=== PATIENT | male | born 1995 | race Caucasian/White ===

== ENCOUNTER → 2023-11-22 08:23 | Outpatient (REF) | payer BC, SELFPAY | LOC: HWRAD 08:23 | PROVIDERS: ATTENDING PHYSICIAN Internal Medicine | DX: R79.89 Other specified abnormal findings of blood chemistry (principal) | CPT/HCPCS: 76700 ==

== ENCOUNTER 2024-11-13 15:04 | Emergency (ER) | payer BC, SELFPAY ==
[2024-11-13 15:05] VITALS: BP 190/98
[2024-11-13 15:21] LABS: % Basophils 0.3 % (0-2); % Eosinophils 1.1 % (0-6); % Immature Granulocytes 0.7 % (0-0.5); % Lymphocytes 17.6 % (20.5-51.1); % Monocytes 9.4 % (1.7-9.3); % Neutrophils 70.9 % (42.2-75.2); Absolute Eosinophils 0.1 10^3/uL (0-0.7); Absolute Immature Granulocytes 0.1 10^3/uL (0-0.05); Absolute Lymphocytes 1.6 10^3/uL (1.2-3.4); Absolute Monocytes 0.9 10^3/uL (0.1-0.6); Absolute Neutrophils 6.5 10^3/uL (1.4-6.5); Hematocrit 48.1 % (39.0-52.0); Hemoglobin 16.5 g/dL (13.0-18.0); Mean Corp Hgb Conc. 34.3 g/dL (33.0-37.0); Mean Corpuscular Hgb 28.8 pg (27.0-31.0); Mean Corpuscular Volume 83.9 fL (80.0-94.0); Nucleated Red Blood Cells % 0 % (-); Platelet Count 246 10^3/uL (130-400); Red Blood Cell Count 5.73 10^6/uL (4.70-6.10); Red Cell Dist. Width 12.7 % (11.5-14.5); White Blood Cell Count 9.1 10^3/uL (4.8-10.8)
[2024-11-13 15:31] LABS: ALT (SGPT) 78 U/L (0-50); AST (SGOT) 45 U/L (17-59); Albumin 4.5 g/dl (3.5-5.0); Alkaline Phosphatase 45 U/L (38-126); Blood Urea Nitrogen 10 mg/dl (9-20); Calcium 9.9 mg/dl (8.4-10.2); Carbon Dioxide 29 mmol/L (22-30); Chloride 105 mmol/L (98-107); Glucose 137 mg/dl (70-99); Lipase 489 U/L (23-300); Sodium 142 mmol/L (135-145); Total Bilirubin 0.9 mg/dl (0.2-1.3); Total Protein 7.4 g/dl (6.3-8.2); eGFR > 60.00
[2024-11-13 15:58] VITALS: BMI 27.5
--- NOTE | 2024-11-13 17:10 | ED.GENMED ---
History of Present Illness
General
Chief Complaint: Abdominal Pain
Time Seen by Provider: 11/13/24 15:16
History of Present Illness
History of Present Illness:
29-year-old male presents the emergency department for evaluation of lower abdominal pain and vomiting for the past 2 days. No diarrhea. Pain has been gradually worsening since onset. No prior abdominal surgical history. No chills or night
sweats.
Review of Systems
Review of Systems
Allergies reviewed?: Yes
All Other Systems: ROS reviewed and negative except as documented in HPI and ROS
Phy Exam
Physical Exam
Physical Exam:
GEN: Well appearing, NAD, WDWN
HEENT: Oral mucosa moist, no scleral icterus
Cardiac: Regular rate
Lung: No respiratory distress, no tachypnea
Abdomen: Soft, diffuse lower abdominal tenderness
MSK: No gross deformity or injuries
Skin: Good color, no pallor or jaundice, no rashes
Neuro: AO x3, moves all extremities freely
Psych: Calm, cooperative
Course
Orders/Labs/Results
Orders:
Orders
11/13/24 15:11
Complete Blood Count/With Diff Urgent
Comprehensive Metabolic Panel Urgent
Lipase Urgent
11/13/24 15:49
CT Abd/Pel (IV only)-DH only Urgent
Comment:
Reason For Exam: lower abd pain
11/13/24 17:46
Dicyclomine [Bentyl] 20 mg .ROUTE .STK-MED ONE
11/13/24 17:47
Dicyclomine [Bentyl] 20 mg PO NOW STA
Abnormal Lab Results
11/13/24
15:11
Abs Immat Gran (auto) 0.1 H 10^3/uL
(0-0.05)
Absolute Monos (auto) 0.9 H 10^3/uL
(0.1-0.6)
Immature Gran % 0.7 H %
(0-0.5)
Lymphocytes % 17.6 L %
(20.5-51.1)
Monocytes % 9.4 H %
(1.7-9.3)
Glucose 137 H mg/dl
(70-99)
ALT 78 H U/L
(0-50)
Lipase 489 H U/L
(23-300)
11/13/24 15:11
11/13/24 15:11
Vital Signs
Initial and Last Documented VS:
Initial Vital Signs
Temp Pulse Resp BP Pulse Ox
98.4 F 74 18 190/98 100
11/13/24 15:05 11/13/24 15:05 11/13/24 15:05 11/13/24 15:05 11/13/24 15:05
Last Documented Vital Signs
Temp Pulse Resp BP Pulse Ox
98.4 F 74 18 172/88 99
11/13/24 15:05 11/13/24 17:39 11/13/24 17:39 11/13/24 17:39 11/13/24 17:39
MDM/Problems Addressed
MDM/Problems Addressed:
Imaging was obtained due to the patient's focal lower abdominal tenderness to rule out appendicitis, fortunately this imaging was negative, likely self-limited viral syndrome
*Critical Care Note
Total Time (30-74mins, 75-104mins- exclusive of procedures): Not Applicable
ED Attending Note
-
Portions of this chart may have been created with voice recognition software.� Occasional wrong word or��sound alike� substitutions may have occurred due to the inherent limitations of voice recognition software.
Discharge Plan
Departure
Patient Disposition: Home (Routine Discharge)
Date of Disposition: 11/13/24
Time of Disposition: 17:34
Patient with high blood pressure during this ER visit?: No
Discharge Problem:
Abdominal pain, lower
Instructions: Abdominal Pain
Prescriptions:
New
dicyclomine 20 mg tablet
20 mg PO TID PRN (Reason: abdominal pain) Qty: 15 0RF
Referrals:
Fran Vital MD [Family Provider] -
Interventions
Interventions:
*Risk Screen - Suicide Last Done: 11/13/24 15:05
*General Assessment Last Done: 11/13/24 15:05
*Neglect/Abuse Screening Last Done: 11/13/24 15:05
*ED COVID-19 Vaccine History Last Done: 11/13/24 15:05
*Nursing Disposition Last Done: 11/13/24 17:49
LK-Djrapr-Wgqtrjxyxl Assessment Last Done: 11/13/24 15:56
Discharge Date and Time
Discharge Date/Time: 11/13/24 17:50
Print Language: [id number]
[2024-11-13 17:39] VITALS: BP 172/88
[2024-11-13] MEDS: BENTYL 20 MG PO (17:47)
== END 2024-11-13 17:50 | disposition home or self-care (01) ==
LOC: EMR 15:04
PROVIDERS: Student in an Organized Health Care Education/Training Program; EMERGENCY PHYSICIAN Emergency Medicine; FAMILY PHYSICIAN Internal Medicine
DX: R10.30 Lower abdominal pain, unspecified (principal); R11.10 Vomiting, unspecified
CPT/HCPCS: 99284; 74177; 80053; 83690; 85025; Q9967